=== PATIENT | female | born 1935 | race African-American/Black ===

== ENCOUNTER 2016-10-18 18:20 | Emergency (ER) | payer MEDICARE, OTHER ==
[~2016-10-18] VITALS: Ht 167.6 cm; Wt 71.0 kg
[~2016-10-18 18:20] MED LIST: AMLO5 PO; LIPI10TA PO; PLAV75TA29 PO
[2016-10-18 18:21] VITALS: BP 192/82; PULSE 80; RESP 24; TEMP 98.7; O2SAT 98
--- NOTE | 2016-10-18 19:41 | PD ---
HPI Chief Complaint: Fall Time Seen by Provider: 19:20 Travel History International Travel<30 days: No Contact w/Intl Traveler<30days: No Traveled to known affect area: No History of Present Illness HPI Patient 81-year-old female presents emergency Department with her daughter who lives with her for evaluation of right shoulder pain. Patient fell 5 days ago at home. She states she was in relating from one room of the house the next and picked up her walker so that she could get over a carpet-hard floor boundary. She states that she lost her balance and fell forward. She states she did not hit her head or her neck denies any chest pain abdominal pain neck or back pain denies any other extremity pain. She states that her right shoulder is been hurting her since. She states she fell on an outstretched hand. Denies any loss of consciousness. On examination the patient did have some strange movements of the right upper extremity and her daughter states that she is concerned because she has not had these movements prior to the injury a few days ago. This is the reason they're chiefly here. PFSH Past Medical History Arthritis: Yes (OSTEO) Asthma: No Blood Disorders: No Anxiety: Yes Depression: No Heart Rhythm Problems: No (Irregular heartbeat) Cancer: No Cardiovascular Problems: Yes High Cholesterol: No Chest Pain: Yes Congestive Heart Failure: No COPD: No Coronary Artery Disease: Yes Diabetes: No Endocrine: Yes (PRE-DIABETIC) Genitourinary: Yes Hypertension: Yes Immune Disorder: No Musculoskeletal: Yes (BACK SURGERY) Neurologic: No Psychiatric: Yes Reproductive: No Respiratory: No Sleep Apnea: No Thyroid Disease: No Past Surgical History Abdominal Surgery: Yes Hysterectomy: Yes Social History Alcohol Use: No Tobacco Use: No Substance Use: No Allergies-Medications (Allergen,Severity, Reaction): Coded Allergies: Aspirin (Verified Allergy, Unknown, 10/18/16) Penicillin (Verified Allergy, Unknown, 10/18/16) Quinine (Verified Allergy, Unknown, 10/18/16) Sulfa (Verified Allergy, Unknown, 10/18/16) Reported Meds & Prescriptions Reported Meds & Active Scripts Active Lipitor (Atorvastatin Calcium) 10 Mg Tab 10 Mg PO DAILY Norvasc (Amlodipine Besylate) 5 Mg Tab 10 Mg PO DAILY Plavix (Clopidogrel Bisulfate) 75 Mg Tab 75 Mg PO DAILY Review of Systems Except as stated in HPI: all other systems reviewed are Neg Physical Exam Narrative GENERAL: Well-developed well-nourished in no apparent distress, quite pleasant, gives her own history. SKIN: No rash no wound no bruising. HEAD: Atraumatic. Normocephalic. No yoo signs no raccoons eyes. EYES: Pupils equal and round. No scleral icterus. No injection or drainage. ENT: No nasal bleeding or discharge. Mucous membranes pink and moist. NECK: Trachea midline. No JVD. CARDIOVASCULAR: Regular rate and rhythm. No murmur appreciated. RESPIRATORY: No accessory muscle use. Clear to auscultation. Breath sounds equal bilaterally. GASTROINTESTINAL: Abdomen soft, non-tender, nondistended. Hepatic and splenic margins not palpable. MUSCULOSKELETAL: No obvious deformities. No clubbing. No cyanosis. No edema. There is some nonspecific tenderness over the right shoulder. No true bony tenderness. Patient is able to range her shoulder nearly completely however does have some limitations of abduction and internal rotation. Pulses motor and sensory intact distally in all 4 extremities. Left shoulder is normal. A little elbows are normal, wrists are normal. Hips knees ankles and pelvis are normal. No midline CT or L-spine step-off. NEUROLOGICAL: Awake and alert. Cranial nerves II through XII are grossly intact and nonfocal, 5 out of 5 strength in all 4 extremities. DTRs are 2+ and bilaterally equal. Cerebellar testing patient has finger nose finger testing and past-pointing bilateral upper extremities. She is able to ambulate with a walker and does have some mild stairstepping pattern which her daughter states is normal for her. She is alert and awake and oriented 4. She is able to give her own history. She has a rhythmic course motion of the right upper extremity which was repeatable both left upper extremity without cogwheel rigidity. This rhythm could be described as chorea. PSYCHIATRIC: Appropriate mood and affect; insight and judgment normal. Data Data Last Documented VS Vital Signs Date Time Temp Pulse Resp B/P Pulse Ox O2 Delivery O2 Flow Rate FiO2 10/18/16 18:26 10/18/16 18:21 98.7 80 24 98 Room Air Orders Basic Metabolic Panel (Bmp) (10/18/16 19:39) Complete Blood Count With Diff (10/18/16 19:39) Magnesium (Mg) (10/18/16 19:39) Prothrombin Time / Inr (Pt) (10/18/16 19:39) Act Partial Throm Time (Ptt) (10/18/16 19:39) Chest, Single Ap (10/18/16 19:39) Ecg Monitoring (10/18/16 19:39) Iv Access Insert/Monitor (10/18/16 19:39) Oximetry (10/18/16 19:39) Oxygen Administration (10/18/16 19:39) Sodium Chloride 0.9% Flush (Ns Flush) (10/18/16 19:45) Acetaminophen (Tylenol) (10/18/16 19:45) Shoulder, Complete (>2vws) (10/18/16 ) Ct Brain W/O Iv Contrast(Rout) (10/18/16 ) Ct Cerv Spine W/O Contrast (10/18/16 ) Urinalysis - C+S If Indicated (10/18/16 20:21) Cath For Specimen (10/18/16 22:30) Labs Laboratory Tests Test 10/18/16 10/18/16 20:25 21:35 White Blood Count 5.0 TH/MM3 Red Blood Count 4.05 MIL/MM3 Hemoglobin 11.7 GM/DL Hematocrit 33.7 % Mean Corpuscular Volume 83.2 FL Mean Corpuscular Hemoglobin 28.8 PG Mean Corpuscular Hemoglobin 34.6 % Concent Red Cell Distribution Width 14.2 % Platelet Count 150 TH/MM3 Mean Platelet Volume 9.8 FL Neutrophils (%) (Auto) 53.1 % Lymphocytes (%) (Auto) 32.9 % Monocytes (%) (Auto) 10.2 % Eosinophils (%) (Auto) 3.0 % Basophils (%) (Auto) 0.8 % Neutrophils # (Auto) 2.6 TH/MM3 Lymphocytes # (Auto) 1.6 TH/MM3 Monocytes # (Auto) 0.5 TH/MM3 Eosinophils # (Auto) 0.2 TH/MM3 Basophils # (Auto) 0.0 TH/MM3 CBC Comment DIFF FINAL Differential Comment Prothrombin Time 11.5 SEC Prothromb Time International 1.0 RATIO Ratio Activated Partial 27.2 SEC Thromboplast Time Sodium Level 143 MEQ/L Potassium Level 3.6 MEQ/L Chloride Level 107 MEQ/L Carbon Dioxide Level 27.5 MEQ/L Anion Gap 9 MEQ/L Blood Urea Nitrogen 12 MG/DL Creatinine 0.76 MG/DL Estimat Glomerular Filtration 89 ML/MIN Rate Random Glucose 102 MG/DL Calcium Level 10.1 MG/DL Magnesium Level 2.1 MG/DL Urine Color YELLOW Urine Turbidity CLEAR Urine pH 6.5 Urine Specific Buckner 1.018 Urine Protein NEG mg/dL Urine Glucose (UA) NEG mg/dL Urine Ketones NEG mg/dL Urine Occult Blood NEG Urine Nitrite NEG Urine Bilirubin NEG Urine Urobilinogen LESS THAN 2.0 MG/DL Urine Leukocyte Esterase NEG Urine RBC 2 /hpf Urine Squamous Epithelial <1 /hpf Cells Urine Hyaline Casts 1 /lpf Urine Granular Casts 11 /lpf Microscopic Urinalysis Comment CULT NOT INDICATED MDM Medical Decision Making Medical Screen Exam Complete: Yes Emergency Medical Condition: Yes Differential Diagnosis Garcia, normal pressure hydrocephalus, brain injury, hematoma, electrolyte abnormality, urinary tract infection, neck injury, shoulder injury. Narrative Course Patient was roomed in emergency department, she has an odd rhythmic movement of the right upper extremity which could be described as chorea. On further review of systems the patient has had some urinary frequency. No delirium and no dementia symptoms per daughter. She is alert and awake and oriented and able to give her full history. She does have 2 symptoms out of the triad for NPH. Her CAT scan does show enlarged ventricles. I discussed the differential diagnosis with the patient and her daughter and recommended that they see neurology. At this time I don't think that she has to be emergently admitted as she does not have any altered mental status. They would like to go home anyways. Remainder of her initial workup including a CAT scan of the neck, chest x-ray, shoulder x-ray, CBC BMP are within normal limits. Last 24 hours Impressions Chest X-Ray 10/18/161938 Signed Impressions: Service Date/Time: Tuesday, October 18, 2016 19:55 - CONCLUSION: No acute disease. Constantino Mendoza Jr., MD Shoulder X-Ray 10/18/16 0000 Signed Impressions: Service Date/Time: Tuesday, October 18, 2016 19:58 - CONCLUSION: 1. Constantino Mendoza Jr., MD Head CT 10/18/16 0000 Signed Impressions: Service Date/Time: Tuesday, October 18, 2016 20:06 - CONCLUSION: 1. No acute abnormality. 2. Atrophy including ventriculomegaly. Constantino Mendoza Jr., MD Cervical Spine CT 10/18/16 0000 Signed Impressions: Service Date/Time: Tuesday, October 18, 2016 20:06 - CONCLUSION: 1. No fracture or dislocation. 2. Multilevel degenerative changes as detailed above. Constantino Mendoza Jr., MD I discussed the patient I would really like her to follow-up with neurology and have given her referral. I discussed with her and her daughter returned ED criteria including fever worsening of these movements worsening of ambulation or altered mental status. They're agreeable. Diagnosis Primary Impression: Shoulder pain Qualified Code: M25.511 - Acute pain of right shoulder Additional Impressions: Hydrocephalus Chorea Referrals: Ra Velazquez PhD MD Disposition: DISCHARGE HOME Condition: Stable Georges Hines MD October 18, 2016 19:41
[2016-10-18] MEDS ORDERED: SODIUM CHLORIDE 0.9% FLUSH 10 ML FLUSH IVF PRN (19:45)
[2016-10-18] MEDS ORDERED: ACETAMINOPHEN 325 MG TAB PO ONE (19:45)
--- NOTE | 2016-10-18 20:35 | RADRPT ---
EXAM DATE/TIME: 10/18/2016 19:55 [facility] COMPARISON: CHEST SINGLE AP, April 24, 2016, 15:57. INDICATIONS : Chest pain after fall. MEDICAL HISTORY : None. SURGICAL HISTORY : None. ENCOUNTER: Initial ACUITY: 3 days PAIN SCORE: 5/10 LOCATION: Right chest FINDINGS: A single view of the chest demonstrates the lungs to be symmetrically aerated without evidence of mas s, infiltrate or effusion. The cardiomediastinal contours are unremarkable. Osseous structures are intact. CONCLUSION: No acute disease. Constantino Mendoza Jr., MD on October 18, 2016 at 20:33 Board Certified Radiologist. This report was verified electronically.
--- NOTE | 2016-10-18 20:36 | RADRPT ---
EXAM DATE/TIME: 10/18/2016 19:58 [facility] COMPARISON: No previous studies available for comparison. INDICATIONS : Right shoulder pain, fall. MEDICAL HISTORY : None. SURGICAL HISTORY : None. ENCOUNTER: Initial ACUITY: 3 days PAIN SCORE: 10/10 LOCATION: Right shoulder FINDINGS: Multiple view examination of the right shoulder demonstrates no evidence of fracture or dislocation. The glenohumeral and acromioclavicular joints are maintained. There is normal range of motion betwe en internal and external rotation. Bony mineralization is normal. CONCLUSION: 1. Constantino Mendoza Jr., MD on October 18, 2016 at 20:34 Board Certified Radiologist. This report was verified electronically.
--- NOTE | 2016-10-18 20:40 | RADRPT ---
EXAM DATE/TIME: 10/18/2016 20:06 [facility] COMPARISON: CT BRAIN W/O CONTRAST, April 24, 2016, 15:43. INDICATIONS : Trauma, Fall on Friday RADIATION DOSE: 56.35 CTDIvol (mGy) MEDICAL HISTORY : Hypertension. Parkinsons. SURGICAL HISTORY : None. ENCOUNTER: Initial ACUITY: 4 - 6 days PAIN SCALE: 6/10 LOCATION: Head TECHNIQUE: Multiple contiguous axial images were obtained of the head. Using automated exposure control and adj ustment of the mA and/or kV according to patient size, radiation dose was kept as low as reasonably a chievable to obtain optimal diagnostic quality images. FINDINGS: CEREBRUM: Atrophy and ventriculomegaly. The ventricles are normal for age. No evidence of midline shift, mass lesion, hemorrhage or acute infarction. No extra-axial fluid collections are seen. POSTERIOR FOSSA: The cerebellum and brainstem are intact. The 4th ventricle is midline. The cerebellopontine angle i s unremarkable. EXTRACRANIAL: The visualized portion of the orbits is intact. SKULL: The calvaria is intact. No evidence of skull fracture. CONCLUSION: 1. No acute abnormality. 2. Atrophy including ventriculomegaly. Constantino Mendoza Jr., MD on October 18, 2016 at 20:37 Board Certified Radiologist. This report was verified electronically.
--- NOTE | 2016-10-18 20:45 | RADRPT ---
EXAM DATE/TIME: 10/18/2016 20:06 [facility] COMPARISON: No previous studies available for comparison. INDICATIONS : Trauma, fall on Friday RADIATION DOSE: 31.21 CTDIvol (mGy) MEDICAL HISTORY : Hypertension. Parkinsons. SURGICAL HISTORY : None. ENCOUNTER: Initial ACUITY: 4 - 6 days PAIN SCALE: 6/10 LOCATION: neck TECHNIQUE: Volumetric scanning of the cervical spine was performed. Multiplanar reconstructions in the sagittal, coronal and oblique axial planes were performed. Using automated exposure control and adjustment o f the mA and/or kV according to patient size, radiation dose was kept as low as reasonably achievable to obtain optimal diagnostic quality images. FINDINGS: VERTEBRAE: Normal vertebral body height. ALIGNMENT: No evidence of subluxation. Calcified plaque involving the carotid arteries bilaterally. C2-C3: Mild central bulge just touches the ventral portion of the cord. Neural foramina patent bilaterally. C3-C4: A central disc protrusion and osteophyte flattens the ventral portion of the cord. Neural foramina ar e patent. C4-C5: A broad-based disc bulge abuts the ventral portion of the cord. Bony uncovertebral hypertrophy causes left neural foraminal narrowing. The right is patent. C5-C6: The bony spinal canal is normal in size. No evidence of disc bulge or herniation. Bony uncovertebral hypertrophy causes bilateral neural foraminal narrowing. C6-C7: The bony spinal canal is normal in size. No evidence of disc bulge or herniation. Bony uncovertebral hypertrophy causes bilateral neural foraminal narrowing. C7-T1: The bony spinal canal is normal in size. No evidence of disc bulge or herniation. The neural forami na are bilaterally patent. CONCLUSION: 1. No fracture or dislocation. 2. Multilevel degenerative changes as detailed above. Constantino Mendoza Jr., MD on October 18, 2016 at 20:40 Board Certified Radiologist. This report was verified electronically.
[2016-10-18 21:00] LABS: AUTOMATED NEUTROPHIL # 2.6 TH/MM3 (1.8-7.7); BASOPHIL % 0.8 % (0.0-2.0); EOSINOPHIL # 0.2 TH/MM3 (0-0.4); HEMATOCRIT 33.7 % (35.0-46.0); HEMO FLAGS DIFF FINAL; LYMPH % 32.9 % (9.0-44.0); LYMPHOCYTE # 1.6 TH/MM3 (1.0-4.8); MEAN CELL VOLUME 83.2 FL (80.0-100.0); MEAN CORPUSCULAR HEMOGLOBIN 28.8 PG (27.0-34.0); MEAN CORPUSCULAR HGB CONC 34.6 % (32.0-36.0); MONO % 10.2 % (0.0-8.0); NEUT % 53.1 % (16.0-70.0); PLATELET COUNT 150 TH/MM3 (150-450); RED BLOOD COUNT 4.05 MIL/MM3 (4.00-5.30); RED CELL DISTRIBUTION WIDTH 14.2 % (11.6-17.2)
[2016-10-18 21:12] LABS: APTT (PATIENT) 27.2 SEC (24.3-30.1); PROTHROMBIN TIME - PATIENT 11.5 SEC (9.8-11.6)
[2016-10-18 21:30] LABS: BICARBONATE 27.5 MEQ/L (21.0-32.0); MAGNESIUM 2.1 MG/DL (1.5-2.5); POTASSIUM 3.6 MEQ/L (3.5-5.1)
[2016-10-18 22:14] LABS: BLOOD, URINE NEG (NEG); COMMENT (UR) CULT NOT INDICATED; CULTURE IF INDICATED CULT NOT INDICATED; GLUCOSE,URINE NEG (NEG); GRANULAR CAST, URINE 11 /lpf; HYALINE CAST, URINE 1 /lpf (RARE); KETONE, URINE NEG (NEG); NITRITE,URINE NEG (NEG); PH, URINE 6.5 (5.0-8.5); SQUAMOUS EPITHELIAL CELL URINE <1 /hpf (0-5); URINE COLOR YELLOW (YELLW/STRAW)
== END 2016-10-18 22:28 | disposition home or self-care (01) ==
LOC: NEPD 18:20
DX: M25.511 Pain in right shoulder (principal); G91.9 Hydrocephalus, unspecified; G25.5 Other chorea; I25.10 Atherosclerotic heart disease of native coronary artery without angina pectoris; I10 Essential (primary) hypertension; R73.03 Prediabetes; R07.9 Chest pain, unspecified; W19.XXXA Unspecified fall, initial encounter; Y93.01 Activity, walking, marching and hiking; Y92.009 Unspecified place in unspecified non-institutional (private) residence as the place of occurrence of the external cause; Z79.02 Long term (current) use of antithrombotics/antiplatelets; Z79.899 Other long term (current) drug therapy
CPT/HCPCS: 70450; 71010; 72125; 73030; 80048; 81001; 83735; 85025; 85610; 85730; 99285